=== PATIENT | female | born 1985 | race Caucasian/White ===

== ENCOUNTER 2018-06-08 01:58 | Inpatient (IN) | payer OTHER ==
[2018-06-08] VITALS (14 sets, daily range): BP systolic 106–135; BP diastolic 50–72; PULSE 83–119; TEMP 97.7–98.6
[~2018-06-08] VITALS: Ht 157.5 cm; Wt 101.4 kg
[~2018-06-08 01:58] MED LIST: CELESTONE30 MG/5 ML IM; IBU600 MG PO; PERCOCET 325 MG1 TA2 PO; PHENERGAN 25 TA25 MG PO; PRENATAL PO; PROMETRIUM200 M1 PO; [UNRECOGNIZED DRUG - REMARK]; ear drops
--- NOTE | 2018-06-08 02:10 | NUR ---
G2L1. 19-0. Ambulatory to LDR 2 with spouse. Clean gown on. Pt states she has been having contractions tonight but is unsure when they started. Pt also states she is having leaking of fluid. Denies vaginal bleeding. Pt reports her water breaking a couple weeks ago. SVE 3-/-2. Plan of care explained to pt and . 0216: updated on pts status. See phsycian notification. Pt updated on plan of care.
--- NOTE | 2018-06-08 02:31 | NUR ---
at bedside. Bedside ultrasound completed at this time and cardiac, movement and vertex presentation noted. 0234: EFM placed and FHR 190'sbpm noted. Plan of care explained to pt and by . Admit orders received. 0300: IV started and labs obtained via IV site. IV flushes without difficulties. 0310: PRN morphine and motrin explained and administered. Plan of care explained to pt and . Pt states she is going to try and get some sleep. Call light within reach.
[2018-06-08 03:37] LABS: BASO # 0.1 (0.0-0.2); BASO % 0.3 % (0.0-2.0); EOS # 0.1 (0.0-0.7); EOS % 0.6 % (0-4.0); GRAN # 14.8 (1.4-6.5); GRAN % 78.3 % (42.2-75.2); HEMATOCRIT 38.9 % (37.0-47.0); HEMOGLOBIN 13.6 g/dl (12.5-16.0); LYMPH % 15.8 % (20.0-51.0); MEAN CELL VOLUME 91 fl (80.0-100.0); MEAN CORPUSCULAR HEMOGLOBIN 32 pg (27.0-31.0); MEAN CORPUSCULAR HGB CONC 35 g/dl (33.0-37.0); MEAN PLATELET VOLUME 11.3 fl (7.4-10.4); MONO # 0.8 (0.1-0.6); PLATELET COUNT 199 K/mm3 (130-400); RED BLOOD COUNT 4.28 M/mm3 (4.10-5.30); REDCELL DISTRIBUTION WIDTH-CV 12.8 % (11.5-14.5)
--- NOTE | 2018-06-08 07:05 | NUR ---
Patient resting in bed with spouse at side. Patient denies contractions or vaginal pressure. VS WNL. Doppler of FHR shows 187 bpm.
--- NOTE | 2018-06-08 09:00 | NUR ---
Patient tolerates breakfast and ambulating in halls without complaints of contractions or vaginal pressure.
--- NOTE | 2018-06-08 11:00 | NUR ---
Patient sleeps between disturbances. Denies contractions or vaginal pressure. VS WNL. Doppler of FHR shows 140-150 bpm.
--- NOTE | 2018-06-08 12:30 | NUR ---
Dr. Hill at bedside and discusses plan of care and discharge home.
--- NOTE | 2018-06-08 13:15 | NUR ---
Discharge instructions reviewed and patient states understanding. Bereavement packet provided and reviewed and questions answered.
--- NOTE | 2018-06-08 13:28 | NUR ---
1328 - Patient calls out and states that "something is hanging out of her". This nurse to room. Umbilical cord visible outside of vagina. 1330 - Dr. Hill called and on her way to the hospital.
--- NOTE | 2018-06-08 13:36 | NUR ---
1336 - Dr. Hill to room. Bedside sono done and confirms presence of a FHR . Doppler shows FHR at [address] Hill discusses plan of care with patient including that induction is not an option because there is still a FHR. Plan to continue observation status in hospital with FHR check q4 hours.
--- NOTE | 2018-06-08 15:30 | NUR ---
Dr. Hill at bedside - sono completed and confirms a FHR. Doppler shows FHR at 187-188 bpm.
--- NOTE | 2018-06-08 17:30 | NUR ---
Dr. Hill at bedside - sone done and confirms FHR is present. Dr. Hill is unable to hear FHR on doppler. Approx. FHR from US is 50 bpm. Plan of care discussed with patient including the option to induce labor. Patient would like time to talk with family members.
--- NOTE | 2018-06-08 19:55 | NUR ---
Dr Hill into room, performs bedside sono. No heartbeat detected. Findings and plan of care reviewed with pt and spouse, by Dr Hill, quetions invited and answered. SVE by Dr Hill, unchanged from previous exam, 3-4 cm/75% with umbulical cord prolapsing out of vagina. Pt requests to go out to smoke, "one more time before we get started". Pt slightly tearful, but acepting. While pt in bathroom, states "we've been preparing for this"
[2018-06-08 21:13] LABS: BASO % 0.2 % (0.0-2.0); EOS # 0.1 (0.0-0.7); EOS % 0.9 % (0-4.0); GRAN # 10.4 (1.4-6.5); GRAN % 70.5 % (42.2-75.2); HEMOGLOBIN 12.6 g/dl (12.5-16.0); LYMPH # 3.5 (1.2-3.4); LYMPH % 23.6 % (20.0-51.0); MEAN CELL VOLUME 91 fl (80.0-100.0); MEAN CORPUSCULAR HEMOGLOBIN 32 pg (27.0-31.0); MEAN CORPUSCULAR HGB CONC 36 g/dl (33.0-37.0); MONO # 0.6 (0.1-0.6); MONO % 4.1 % (1.7-9.3); PLATELET COUNT 206 K/mm3 (130-400); RED BLOOD COUNT 3.89 M/mm3 (4.10-5.30); REDCELL DISTRIBUTION WIDTH-CV 12.7 % (11.5-14.5)
[2018-06-08 21:14] LABS: HEMATOCRIT 35.3 % (37.0-47.0)
--- NOTE | 2018-06-08 22:00 | NUR ---
Cytotech 400mcg placed with SVE, pt tolerates well.
--- NOTE | 2018-06-08 22:50 | NUR ---
Pt reports "I'm starting to feel some cramps". Family supportive and social at bedside.
--- NOTE | 2018-06-08 23:16 | NUR ---
Morphine 2 mg IV push per pt request for "contractions" 9139 pt reports "the Morphine didn't help at all", Morphine 2 mg IV push"
--- NOTE | 2018-06-08 23:45 | NUR ---
Pt reports "I feel maybe some pressure in my butt" SVE with head protruding 2cm through cervix. Explained to pt that delivery would be soon, Dr Hill notified to come for delivery.
--- NOTE | 2018-06-09 01:44 | NUR ---
Per [facility], fetus not eligible for donation. Referral number [id number]
[2018-06-10 11:17] LABS: BASO % 0.2 % (0.0-2.0); EOS # 0.2 (0.0-0.7); EOS % 1.4 % (0-4.0); GRAN # 9.2 (1.4-6.5); GRAN % 72.7 % (42.2-75.2); LYMPH # 2.6 (1.2-3.4); LYMPH % 20.5 % (20.0-51.0); MEAN CELL VOLUME 91 fl (80.0-100.0); MEAN CORPUSCULAR HEMOGLOBIN 32 pg (27.0-31.0); MEAN CORPUSCULAR HGB CONC 36 g/dl (33.0-37.0); MEAN PLATELET VOLUME 11.1 fl (7.4-10.4); MONO # 0.6 (0.1-0.6); MONO % 4.5 % (1.7-9.3); PLATELET COUNT 191 K/mm3 (130-400); RED BLOOD COUNT 3.72 M/mm3 (4.10-5.30); REDCELL DISTRIBUTION WIDTH-CV 12.7 % (11.5-14.5)
[2018-06-10 11:18] LABS: HEMATOCRIT 33.8 % (37.0-47.0)
== END 2018-06-09 12:00 | disposition home or self-care (01) | DRG 805 ==
LOC: LDRO 01:58 → LDR 02:45 → OB 19:55
PROVIDERS: ADMIT Student in an Organized Health Care Education/Training Program
PROC: 10E0XZZ Delivery of Products of Conception, External Approach (ICD-10-PCS; principal; 2018-06-09)
DX: O02.1 Missed abortion (principal); O41.1220 Chorioamnionitis, second trimester, not applicable or unspecified; Z37.1 Single stillbirth; O42.012 Preterm premature rupture of membranes, onset of labor within 24 hours of rupture, second trimester; O69.0XX0 Labor and delivery complicated by prolapse of cord, not applicable or unspecified; Z3A.19 19 weeks gestation of pregnancy; O99.214 Obesity complicating childbirth; O99.334 Smoking (tobacco) complicating childbirth; F17.210 Nicotine dependence, cigarettes, uncomplicated
CPT/HCPCS: J0290; J1580; J2270; J2590; J7120

== ENCOUNTER 2020-01-28 10:31 | Outpatient (CLI) | payer OTHER ==
[~2020-01-28] VITALS: Ht 157.5 cm; Wt 98.6 kg
[2020-01-28] MEDS ORDERED: CONCEPT DHA1 CAP PO (10:39)
[2020-01-28 10:42] VITALS: BP 128/72; PULSE 98; TEMP 98.1
--- NOTE | 2020-01-28 10:53 | NUR ---
PT HERE FOR LABOR CHECK. THINKS HER WATER BROKE AT 0900 THIS MORNING BUT HAS NOT HAD ANY LEAKING OF FLUID SINCE AND NOT EXPERIENCING ANY CONTRACTIONS. FHT'S FOUND IN THE 150'S WITH MODERATE VARIABILITY AND ACCELS. SVE 4/90/-2 AND AMNITRACE NEGATIVE. PHONED DR CERVANTES AT 10:29 WITH ORDER RECEIVED TO MONITOR PT FOR ONE HOUR, RECHECK SVE AND DISCHARGE TO HOME IF NO CHANGE. PLAN OF CARE REVIEWED WITH PT AND . ASSESSMENT COMPLETED.
[2020-01-28 11:00] VITALS: BP 109/63; PULSE 102
[2020-01-28 11:30] VITALS: PULSE 90
--- NOTE | 2020-01-28 11:30 | NUR ---
SVE UNCHANGED. PT TO BE DISCHARGED TO HOME WITH EARLY LABOR INSTRUCTIONS. PT VERBALIZED UNDERSTANDING.
== END 2020-01-28 11:45 | disposition home or self-care (01) ==
LOC: LDRO 10:31
DX: O42.92 Full-term premature rupture of membranes, unspecified as to length of time between rupture and onset of labor (principal); Z3A.38 38 weeks gestation of pregnancy

== ENCOUNTER 2020-01-30 10:07 | Inpatient (IN) | payer OTHER ==
[2020-01-30] VITALS (15 sets, daily range): BP systolic 95–132; BP diastolic 53–87; PULSE 96–111; TEMP 97.4–98.6
[~2020-01-30] VITALS: Ht 157.5 cm; Wt 98.2 kg
[~2020-01-30 10:07] MED LIST changes: +CONCEPT DHA1 CAP PO
--- NOTE | 2020-01-30 10:10 | NUR ---
Pt arrives on unit ambulatory with spouse. States bloody show with red bleeding since this morning. "Body hurts overall." Denies LOF. Reports GFM. Changed into gown. EFM and toco applied. VSS. SVE per Junior Maradiaga RN /1. Admission assessment completed. Dr. Hill notified. Orders for admission.
[2020-01-30 12:05] LABS: BASO % 0.2 % (0.0-2.0); EOS # 0.1 (0.0-0.7); EOS % 0.8 % (0-4.0); GRAN % 76.7 % (42.2-75.2); HEMATOCRIT 38.7 % (37.0-47.0); HEMOGLOBIN 13.5 g/dl (12.5-16.0); LYMPH # 2.4 (1.2-3.4); LYMPH % 16.6 % (20.0-51.0); MEAN CELL VOLUME 93 fl (80.0-100.0); MEAN CORPUSCULAR HEMOGLOBIN 32 pg (27.0-31.0); MEAN CORPUSCULAR HGB CONC 35 g/dl (33.0-37.0); MEAN PLATELET VOLUME 12.7 fl (7.4-10.4); MONO # 0.7 (0.1-0.6); MONO % 5.2 % (1.7-9.3); PLATELET COUNT 158 K/mm3 (130-400); RED BLOOD COUNT 4.18 M/mm3 (4.10-5.30); REDCELL DISTRIBUTION WIDTH-CV 13.3 % (11.5-14.5)
--- NOTE | 2020-01-30 12:10 | NUR ---
to bedside. Plan of care discussed. Questions answered. SVE /-1 per provider. AROM at 1207, large amount of clear fluid noted.
--- NOTE | 2020-01-30 12:20 | NUR ---
Report to Alana HENNESSY to assume care of patient at this time.
--- NOTE | 2020-01-30 12:30 | NUR ---
FHR baseline 135-140 with subtle late deceleration noted. 1235: Patient standing at edge of bed and breathing through contractions. Difficulty tracing FHR due to maternal position. FHR tracing maternal heart rate intermittently. 1255: Patient on birthing ball and difficulty tracing FHR due to maternal position. This RN at bedside adjusting monitor. 1300: Jamshid Alcantara RN at bedside to adust monitor. Patient assisted into bed. 1303: SVE per Jamshid Alcantara RN :100/0 and patient states feeling like she needs to push. Dr. Hill updated. FHR decreasing to 90-115bpm for 3.5 minutes. 1308: SVE per Giovanni 100/[address] Hill called for delivery. 1310: SVE per this RN : /+1 1312: Dr. Hill at bedside and patient set up for vaginall delivery. FHR in the 95-115bpm. 1313: Patient begins to push with contractions. FHR decreasing to 65-70bpm. 1317: Patient pushing with contractions and FHR 65bpm and Dr. Hill discusses the need for vacuum and patient agrees. 1318: Vacuum on and traction -pop off x1. Vacuum reapplied. Patient pushing and traction appled. 1319: Vacuum assisted delviery of head. Sue done. Delivery of viable male . bulb syringed and to patients abdomen and E.Brandt RN assumes care of . Physician clamps cord and FOB cuts cord. Cord blood obtained. Cord gases obtained. 1323: Spontaneous delivery of placenta and pitocin bolus started per protocol at 333mU. Fundal massage done/firm/bleeding WNL. Pericare done, bed put back together, patient repositioned and ice pack to perineum. Plan of care discussed.
[2020-01-31 05:30] VITALS: BP 123/68; PULSE 100; TEMP 98.4
[2020-01-31 07:45] VITALS: BP 120/67; PULSE 96; TEMP 98.5
--- NOTE | 2020-01-31 09:24 | NUR ---
Initial visit; Parents thanked Picture [employer] for offering congratulations and God's blessings for the of their son. Picture Framer thanked family for choosing [facility].
[2020-01-31 12:00] VITALS: BP 117/64; PULSE 94; TEMP 98.3
== END 2020-01-31 15:05 | disposition home or self-care (01) | DRG 807 ==
LOC: LDRO 10:07 → LDR 10:34 → OB 10:34
PROVIDERS: ADMIT Student in an Organized Health Care Education/Training Program
PROC: 10D07Z6 Extraction of Products of Conception, Vacuum, Via Natural or Artificial Opening (ICD-10-PCS; principal; 2020-01-30)
PROC: 10907ZC Drainage of Amniotic Fluid, Therapeutic from Products of Conception, Via Natural or Artificial Opening (ICD-10-PCS; 2020-01-30)
DX: O99.214 Obesity complicating childbirth (principal); Z37.0 Single live birth; E66.9 Obesity, unspecified; O76 Abnormality in fetal heart rate and rhythm complicating labor and delivery; Z3A.38 38 weeks gestation of pregnancy
CPT/HCPCS: J2590; J7120

== ENCOUNTER 2021-08-21 10:58 | Outpatient (CLI) | payer OTHER ==
[~2021-08-21] VITALS: Ht 157.5 cm; Wt 95.9 kg
--- NOTE | 2021-08-21 11:10 | NUR ---
pt came in for decreased movement. reports movement on the way to hospital. pt ambulatory with support person to LR6. changed into clean gown. FHR monitor/TOCO applied. vital signs WNL. pt denies any vaginal bleeding, regular contractions, or leaking of fluid. sve /-2
[2021-08-21 11:50] VITALS: BP 115/58; PULSE 90; TEMP 97.5
== END 2021-08-21 12:40 | disposition home or self-care (01) ==
LOC: LDRO 10:58
DX: O36.8130 Decreased fetal movements, third trimester, not applicable or unspecified (principal); Z3A.39 39 weeks gestation of pregnancy

== ENCOUNTER 2021-08-25 01:51 | Inpatient (IN) | payer OTHER ==
[~2021-08-25] VITALS: Ht 157.5 cm; Wt 95.9 kg
[2021-08-25] VITALS (12 sets, daily range): BP systolic 109–146; BP diastolic 54–73; PULSE 69–92; TEMP 98–98.9
--- NOTE | 2021-08-25 02:00 | NUR ---
PT TO UNIT VIA WHEELCHAIR WITH SPOUSE WITH COMPLAINTS OF CONTRACTIONS THAT STARTED APPROXIMATELY 2 HOURS AGO. CHANGED INTO GOWN, EFM X2 APPLIED, VS OBTAINED, SVE OF COMPLETE WITH BULGING BAG. WILL CALL DR. BOOKER FOR DELIVERY.
[2021-08-25 02:20] LABS: BASO # 0.1 K/mm3 (0.0-0.2); BASO % 0.4 % (0.0-2.0); EOS # 0.3 K/mm3 (0.0-0.7); EOS % 1.9 % (0.0-4.0); GRAN # 8.9 K/mm3 (1.4-6.5); GRAN % 64.3 % (42.2-75.2); HEMOGLOBIN 12.8 g/dl (12.5-16.0); LYMPH # 3.7 K/mm3 (1.2-3.4); LYMPH % 26.7 % (20.0-51.0); MEAN CELL VOLUME 91 fl (80.0-100.0); MEAN CORPUSCULAR HEMOGLOBIN 32 pg (27-31); MEAN CORPUSCULAR HGB CONC 36 g/dl (33.0-37.0); MEAN PLATELET VOLUME 11.7 fl (7.4-10.4); MONO # 0.8 K/mm3 (0.1-0.6); MONO % 5.8 % (1.7-9.3); PLATELET COUNT 148 K/mm3 (130-400); RED BLOOD COUNT 3.96 M/mm3 (4.10-5.30); REDCELL DISTRIBUTION WIDTH-CV 13.6 % (11.5-14.5)
[2021-08-25 02:21] LABS: HEMATOCRIT 36.1 % (37.0-47.0)
--- NOTE | 2021-08-25 02:45 | NUR ---
0219- DR. BOOKER IN ROOM TO ASSESS PT. 0222- AROM PERFORMED BY DR. BOOKER, CLEAR FLUID NOTED. 0227- SPONTANEOUS VAGINAL DELIVERY OF VIABLE BABY GIRL THROUGH DOUBLE NUCHAL CORD. BABY TO MOTHER'S ABDOMEN. CORD CLAMPED BY DR. BOOKER, CUT BY FOB, BABY CARES ASSUMED BY Jamshid CAMARGO RN. 0231- SPONTANEOUS DELIVERY OF INTACT PLACENTA. PITOCIN STARTED PER PROTOCOL AT 333ML/HR. DR. BELLAMY BEGINS REPAIR OF 1ST DEGREE LACERATION. 0245- RECOVERY STARTED.
--- NOTE | 2021-08-25 05:00 | NUR ---
PT UP TO BATHROOM, UNABLE TO VOID AT THIS TIME. ASSISTED WITH PERICARE, ICEPACK NAD MESH UNDERWEAR ON. PT ABLE TO AMBULATE TO WITHOUT DIFFICULTY. ORIENTED TO ROOM.
[2021-08-25] MEDS ORDERED: IBU800 M1 PO (09:37)
[2021-08-26 07:30] VITALS: BP 100/61; PULSE 83; TEMP 97.8
== END 2021-08-26 10:40 | disposition home or self-care (01) | DRG 807 ==
LOC: LDRO 01:51 → LDR 02:11 → OB 05:10
PROVIDERS: ADMIT Student in an Organized Health Care Education/Training Program
PROC: 10E0XZZ Delivery of Products of Conception, External Approach (ICD-10-PCS; principal; 2021-08-25)
PROC: 0HQ9XZZ Repair Perineum Skin, External Approach (ICD-10-PCS; 2021-08-25)
PROC: 10907ZC Drainage of Amniotic Fluid, Therapeutic from Products of Conception, Via Natural or Artificial Opening (ICD-10-PCS; 2021-08-25)
DX: O24.429 Gestational diabetes mellitus in childbirth, unspecified control (principal); Z37.0 Single live birth; O99.214 Obesity complicating childbirth; O70.0 First degree perineal laceration during delivery; O69.81X0 Labor and delivery complicated by cord around neck, without compression, not applicable or unspecified; O62.3 Precipitate labor; O99.334 Smoking (tobacco) complicating childbirth; F17.200 Nicotine dependence, unspecified, uncomplicated; Z3A.39 39 weeks gestation of pregnancy
CPT/HCPCS: J2590; J7120

== ENCOUNTER 2024-01-10 13:50 | Emergency (ER) | payer BC ==
[~2024-01-10] VITALS: Ht 157.5 cm; Wt 90.9 kg
[~2024-01-10 13:50] MED LIST changes: +IBU800 M1 PO
[2024-01-10 14:01] VITALS: TEMP 97.8
[2024-01-10 14:54] LABS: BASO % 0.4 % (0.0-2.0); EOS # 0.2 K/mm3 (0.0-0.7); EOS % 1.8 % (0.0-4.0); GRAN # 5.2 K/mm3 (1.4-6.5); GRAN % 56.3 % (42.2-75.2); HEMATOCRIT 43.1 % (37.0-47.0); HEMOGLOBIN 14.6 g/dl (12.5-16.0); LYMPH # 3.4 K/mm3 (1.2-3.4); LYMPH % 36.4 % (20.0-51.0); MEAN CELL VOLUME 95 fl (80.0-100.0); MEAN CORPUSCULAR HEMOGLOBIN 32 pg (27-31); MEAN CORPUSCULAR HGB CONC 34 g/dl (33.0-37.0); MEAN PLATELET VOLUME 10.9 fl (7.4-10.4); MONO # 0.4 K/mm3 (0.1-0.6); MONO % 4.7 % (1.7-9.3); PLATELET COUNT 205 K/mm3 (130-400); RED BLOOD COUNT 4.53 M/mm3 (4.10-5.30)
[2024-01-10] MEDS ORDERED: NS 1,000 ML IV ONE (15:00)
[2024-01-10 15:26] LABS: ALBUMIN 4.1 g/dL (3.5-5.0); BILIRUBIN,TOTAL 0.5 mg/dL (0.2-1.2); CALCIUM 9.4 mg/dL (8.4-10.2); CREATININE, serum 0.71 mg/dL (0.57-1.11); POTASSIUM 3.7 mEq/L (3.5-4.5); TOTAL PROTEIN 7.6 g/dl (6.2-8.1)
[2024-01-10] MEDS ORDERED: ANTIVERT 12.512.5 MG PO (16:18)
[2024-01-10 16:30] LABS: COLLECTION METHOD CLEAN CATCH
[2024-01-10 16:37] LABS: URINE APPEARANCE CLEAR (CLEAR/HAZY); URINE BLOOD NEGATIVE (NEGATIVE); URINE COLOR YELLOW (YELLOW); URINE GLUCOSE NEGATIVE (NEGATIVE); URINE KETONE TRACE (NEGATIVE); URINE NITRATE NEGATIVE (NEGATIVE); URINE PROTEIN(semi-quant) TRACE (NEGATIVE)
[2024-01-10] MEDS ORDERED: MACROBID 1100 MG/CAP PO (16:43)
[2024-01-10 16:55] VITALS: BP 112/71; PULSE 78
== END 2024-01-10 16:55 | disposition home or self-care (01) ==
LOC: COL.ER 13:50
PROVIDERS: Physician Assistant
DX: R42 Dizziness and giddiness (principal); E66.9 Obesity, unspecified; F17.210 Nicotine dependence, cigarettes, uncomplicated
CPT/HCPCS: J7030